=== PATIENT | male | born 1980 | race Hispanic/Latino ===

== ENCOUNTER 2020-11-04 20:05 | Inpatient (IN) | payer SELFPAY ==
[~2020-11-04] VITALS: Ht 177.8 cm; Wt 96.0 kg
[2020-11-04] MEDS ORDERED: MORPHINE 5 MG/ML VIAL (5MG OR GREATER DOSE) IM ONE (20:30)
[2020-11-04] MEDS ORDERED: ONDANSETRON 4MG INJ IVP ONE (20:30)
[2020-11-04 20:32] LABS: BASOPHILS % (AUTO) 0.7 % (0.0-5.0); EOSINOPHILS % (AUTO) 2.8 % (0.0-8.0); LYMPHOCYTES % (AUTO) 38.7 % (21.0-51.0); MEAN CORPUSCULAR HEMOGLOBIN 28.8 pg (27.0-33.0); MEAN CORPUSCULAR HGB CONC 33.3 g/dL (32.0-36.0); MEAN CORPUSCULAR VOLUME 86.3 fL (79-99); MONOCYTES % (AUTO) 6.3 % (3.0-13.0); NEUTROPHILS % (AUTO) 50.7 % (40.0-77.0); PLATELET COUNT (AUTO) 323 K/uL (130-400); RED BLOOD CELL COUNT(AUTO) 4.52 MIL/uL (4.50-6.20); RED CELL DISTRIBUTION WIDTH 12.8 % (11.0-15.5); WHITE BLOOD COUNT (AUTO) 12.2 K/uL (4.8-10.8)
[2020-11-04 20:44] LABS: CREATININE 1.3 mg/dL (0.5-1.5); POTASSIUM 3.8 mmol/L (3.5-5.1)
[2020-11-04] MEDS ORDERED: 0.9%NACL 100ML 100 ML ONE (20:47)
[2020-11-04 20:49] LABS: ALBUMIN 4.2 g/dL (3.5-5.0); BILIRUBIN,TOTAL 0.3 mg/dL (0.2-1.0); TOTAL PROTEIN, SERUM 8.5 g/dL (6.0-8.3)
[2020-11-04] MEDS: CEFAZOLIN SODIUM 1 GM VIAL IVP SCH (20:58)
[2020-11-04] MEDS ORDERED: TETANUS/DIPHTHERIA TOXOID [ADULT] 0.5 ML VIAL IM ONE ×2 (20:59→21:00)
[2020-11-04] MEDS: LACTATED RINGERS 1000ML 1,000 ML IV SCH (21:30)
[2020-11-04] MEDS ORDERED: ZOLPIDEM TARTRATE 5 MG TAB PO PRN (21:30)
[2020-11-04] MEDS ORDERED: MORPHINE 4 MG SYG IV PRN (21:30)
[2020-11-04 22:36] VITALS: BP 148/66
[2020-11-04 23:30] VITALS: BP 160/91
[2020-11-05] VITALS (23 sets, daily range): BP systolic 117–148; BP diastolic 57–89
[2020-11-05] MEDS ORDERED: GUAIFENESIN-CODEINE 5 ML SYRUP PO PRN (00:30)
[2020-11-05] MEDS ORDERED: GUAIFENESIN-CODEINE 5 ML SYRUP ONE (00:50)
[2020-11-05 05:23] LABS: BASOPHILS % (AUTO) 0.6 % (0.0-5.0); EOSINOPHILS % (AUTO) 1.8 % (0.0-8.0); HEMATOCRIT 37.6 % (42-54); LYMPHOCYTES % (AUTO) 27.1 % (21.0-51.0); MEAN CORPUSCULAR HEMOGLOBIN 28.8 pg (27.0-33.0); MEAN CORPUSCULAR VOLUME 87.4 fL (79-99); MONOCYTES % (AUTO) 6.1 % (3.0-13.0); NEUTROPHILS % (AUTO) 63.6 % (40.0-77.0); PLATELET COUNT (AUTO) 305 K/uL (130-400); RED CELL DISTRIBUTION WIDTH 13.1 % (11.0-15.5); WHITE BLOOD COUNT (AUTO) 11.7 K/uL (4.8-10.8)
[2020-11-05] MEDS: CEFAZOLIN SODIUM 1 GM VIAL IVP SCH ×3 (05:28→20:14)
[2020-11-05] MEDS: MORPHINE 2 MG SYG IV PRN ×2 (05:28→15:00)
[2020-11-05 05:39] LABS: MAGNESIUM 2.4 mg/dL (1.80-2.40); PHOSPHORUS 4.1 mg/dL (2.5-4.9); POTASSIUM 3.8 mmol/L (3.5-5.1)
[2020-11-05 05:52] LABS: INR 0.98 (0.85-1.15); PROTHROMBIN TIME 10.7 SEC (9.6-11.6)
[2020-11-05 05:53] LABS: PARTIAL THROMBOPLASTIN TIME 24.8 SEC (26.3-35.5)
[2020-11-05] MEDS: LACTATED RINGERS 1000ML 1,000 ML IV SCH ×2 (07:30→17:34)
[2020-11-05] MEDS: FAMOTIDINE 20MG VIAL IV SCH ×2 (09:00→20:12)
[2020-11-05] MEDS ORDERED: LIDOCAINE HCL-MPF 1% 5ML AMP IJ ONE (11:39)
[2020-11-05] MEDS ORDERED: FENTANYL CITRATE PF 50 MCG/1 ML 2ML VIAL ONE (11:39)
[2020-11-05] MEDS ORDERED: ROCURONIUM 10MG/1ML SYR 10 MG/ML ML ONE (11:39)
[2020-11-05] MEDS ORDERED: PROPOFOL 10 MG/ML 20ML VIAL IV ONE (11:39)
[2020-11-05] MEDS ORDERED: MIDAZOLAM HCL 1 MG/ML 2ML VIAL ONE (11:39)
[2020-11-05] MEDS ORDERED: SUCCINYLCHOLINE CHLORIDE 20 MG/ML 10 ML VIAL ONE (11:39)
[2020-11-05] MEDS ORDERED: NEOSTIGMINE 5MG/5ML SYR IV ONE (12:25)
[2020-11-05] MEDS ORDERED: GLYCOPYRROLATE 1 MG/5 ML SYRINGE ONE (12:25)
[2020-11-05] MEDS ORDERED: KETOROLAC 15MG/ML VIAL (15MG/ML) IV PRN (12:30)
[2020-11-05] MEDS: ACETAMINOPHEN 500 MG TABLET PO SCH ×2 (12:30→20:13)
[2020-11-05] MEDS ORDERED: KCL 20 MEQ ERTAB PO PRN (12:30)
[2020-11-05] MEDS ORDERED: HYDROCODONE/ACETAMINOPHEN 5/325 MG TAB PO PRN ×2 (12:30)
[2020-11-05] MEDS ORDERED: POTASSIUM CHLORIDE 10% ELIXIR 20 MEQ/15 ML UDCUP PO PRN (12:30)
[2020-11-05] MEDS ORDERED: POTASSIUM CHLORIDE 20MEQ/100ML 100 ML IV PRN (12:30)
[2020-11-05] MEDS ORDERED: DiphenhydrAMINE HCL 50 MG/ML VIAL IVP PRN (12:30)
[2020-11-05] MEDS ORDERED: CALCIUM CARB 500MG PO PRN (12:30)
[2020-11-05] MEDS: 0.9%NACL 1000ML 1,000 ML IV SCH ×2 (12:30→22:30)
[2020-11-05] MEDS ORDERED: DIPHENHYDRAMINE HCL 25 MG CAPSULE PO PRN (12:30)
[2020-11-05] MEDS ORDERED: FERROUS FUMARATE 324 MG TABLET PO PRN (12:30)
[2020-11-05] MEDS ORDERED: MEPERIDINE-PF 25 MG/ML SYG ONE ×2 (12:48→12:59)
[2020-11-05] MEDS: CEFAZOLIN 3GM /D5W 100ML 100 ML IV SCH (17:18)
[2020-11-06] VITALS: BP 113/67
[2020-11-06] MEDS: CEFAZOLIN 3GM /D5W 100ML 100 ML IV SCH (01:59)
[2020-11-06] MEDS: LACTATED RINGERS 1000ML 1,000 ML IV SCH (03:30)
[2020-11-06 04:00] VITALS: BP 113/69
[2020-11-06] MEDS: ACETAMINOPHEN 500 MG TABLET PO SCH ×2 (04:08→12:37)
[2020-11-06] MEDS: CEFAZOLIN SODIUM 1 GM VIAL IVP SCH ×2 (05:12→12:32)
[2020-11-06] MEDS: 0.9%NACL 1000ML 1,000 ML IV SCH (07:53)
[2020-11-06 08:09] VITALS: BP 121/71
[2020-11-06] MEDS ORDERED: POLYETHYLENE GLYCOL 3350 17 GM POWD.PACK PO SCH (09:00)
[2020-11-06] MEDS ORDERED: KETO10 PO (09:27)
[2020-11-06] MEDS ORDERED: PANT40TA55 PO (09:27)
[2020-11-06] MEDS ORDERED: HYDR-4060 PO (09:27)
[2020-11-06] MEDS: FAMOTIDINE 20MG VIAL IV SCH (09:42)
[2020-11-06 10:59] VITALS: BP 147/66
[2020-11-06] MEDS ORDERED: PSYLLIUM SEED 1 EACH PACKET PO SCH (12:00)
[2020-11-06 16:38] VITALS: BP 137/68
[2020-11-07] MEDS ORDERED: BISACODYL 5 MG TABLET.DR PO PRN (12:30)
[2020-11-08] MEDS ORDERED: BISACODYL 10 MG SUPP.RECT RC PRN (12:30)
== END 2020-11-06 17:20 | disposition home or self-care (01) | DRG 514 ==
LOC: EDH 20:05 → EDHIP 20:06 → 3CH 23:06
PROVIDERS: ADMIT Internal Medicine; ATTEND Internal Medicine
PROC: 3E0234Z Introduction of Serum, Toxoid and Vaccine into Muscle, Percutaneous Approach (ICD-10-PCS; 2020-11-04)
PROC: 0X6P0Z2 Detachment at Left Index Finger, Mid, Open Approach (ICD-10-PCS; principal; 2020-11-05 11:41)
DX: S62.601A Fracture of unspecified phalanx of left index finger, initial encounter for closed fracture (principal); S61.211A Laceration without foreign body of left index finger without damage to nail, initial encounter; J45.909 Unspecified asthma, uncomplicated; Z20.822 Contact with and (suspected) exposure to COVID-19; W31.2XXA Contact with powered woodworking and forming machines, initial encounter; Z87.09 Personal history of other diseases of the respiratory system; Z87.891 Personal history of nicotine dependence; Z23 Encounter for immunization; Y93.89 Activity, other specified; Y92.89 Other specified places as the place of occurrence of the external cause; Y99.8 Other external cause status
CPT/HCPCS: 36415; 73140; 80048; 80053; 83735; 84100; 85025; 85610; 85730; 87635; 90714; G0378; J0330; J0690; J2175; J2250; J2270; J2405; J2704; J2710; J3010; J3490; J7120